=== PATIENT | male | born 1950 ===

== ENCOUNTER 2021-03-23 08:45 | Inpatient (IN) | payer OTHER ==
[~2021-03-23] VITALS: Ht 167.6 cm; Wt 73.9 kg
[2021-03-23] MEDS ORDERED: TAMS0.4C PO (13:18)
[2021-03-23] MEDS ORDERED: FINASTERIDE5 MG PO (13:18)
[2021-03-23] MEDS ORDERED: B12 ACTIVE1000 MCG PO (13:19)
[2021-03-23] MEDS ORDERED: HYDROCHLOROTHIA25 MG PO (13:19)
[2021-03-24] MEDS ORDERED: CHLORTHALIDONE25 MG (08:05)
[2021-03-24] MEDS ORDERED: FUSION PLUS CA1 EACH (08:05)
[2021-03-24] MEDS ORDERED: MOMETASONE FURO15 G2 (08:05)
[2021-03-24] MEDS ORDERED: ABANEU-SL TABL1 EACH (08:06)
== END 2021-03-26 11:06 | disposition home or self-care (01) | DRG 714 ==
LOC: O/R 03-24 05:42 → SURH 03-24 10:00
PROVIDERS: ADMIT Urology; ATTEND Urology
PROC: 0VT08ZZ Resection of Prostate, Via Natural or Artificial Opening Endoscopic (ICD-10-PCS; principal; 2021-03-24 10:00)
DX: N40.1 Benign prostatic hyperplasia with lower urinary tract symptoms (principal); Z20.822 Contact with and (suspected) exposure to COVID-19